=== PATIENT | female | born 1965 | race Two or more races ===

== ENCOUNTER 2017-11-04 06:32 | Emergency (ER) | payer OTHER ==
[~2017-11-04] VITALS: Ht 165.1 cm; Wt 108.9 kg
--- NOTE | 2017-11-04 07:30 | NUR ---
aaox3, came to er c/o headache. neuro intact. skin is warm and dry. resp is even and unlabored with nad noted. awaiting md for eval.
--- NOTE | 2017-11-04 07:35 | NUR ---
Dr Mendez at [facility] for eval.
[2017-11-04] MEDS ORDERED: diphenhydrAMINE HCL 50 MG/ML VIAL ONE (07:51)
[2017-11-04] MEDS ORDERED: KETOROLAC TROMETHAMINE INJ 30 MG/ML VIAL ONE (07:51)
[2017-11-04] MEDS ORDERED: METOCLOPRAMIDE HCL 10 MG/2 ML VIAL ONE (07:51)
[2017-11-04] MEDS ORDERED: diphenhydrAMINE HCL 50 MG/ML VIAL IV ONE (08:00)
[2017-11-04] MEDS ORDERED: METOCLOPRAMIDE HCL 10 MG/2 ML VIAL IV ONE (08:00)
[2017-11-04] MEDS ORDERED: KETOROLAC TROMETHAMINE INJ 30 MG/ML VIAL IV ONE (08:00)
[2017-11-04] MEDS ORDERED: IV NS 0.9% 1,000 ML BAG IV ONE (08:00)
[2017-11-04 08:09] LABS: BASOPHILS % (AUTO) 0.3 % (0.0-2.0); EOSINOPHILS % (AUTO) 0.3 % (0.0-6.0); HEMATOCRIT 44 % (33-45); HEMOGLOBIN 15.1 g/dL (11.5-14.8); LYMPHOCYTES % (AUTO) 30.3 % (20.0-44.0); MEAN CORPUSCULAR HEMOGLOBIN 31 PG (26.0-33.0); MEAN CORPUSCULAR HGB CONC 34 g/dl (31.0-36.0); MEAN CORPUSCULAR VOLUME 91 fL (82-100); MONOCYTES # (AUTO) 0.8 /CMM (0.1-1.30); MONOCYTES % (AUTO) 11.7 % (2.0-12.0); NEUTROPHILS # (AUTO) 3.8 /CMM (1.8-8.9); NEUTROPHILS % (AUTO) 57.4 % (43.0-81.0); PLATELET COUNT (AUTO) 175 /CMM (150-450); RDW COEFFICIENT OF VARIATION 13.1 (11.5-15.0); RED BLOOD CELL COUNT(AUTO) 4.84 MIL/uL (4.0-5.2); WHITE BLOOD COUNT (AUTO) 6.6 K/uL (4.3-11.0)
[2017-11-04 08:27] LABS: CALCIUM, SERUM 8.8 mg/dL (8.5-10.1); CREATININE 1.1 mg/dL (0.6-1.3); POTASSIUM 3.6 mmol/L (3.5-5.1)
--- NOTE | 2017-11-04 09:12 | NUR ---
IV removed. Catheter intact and site benign. Pressure and 4x4 applied to site. No bleeding noted.Patient discharged to home in stable condition. Written and verbal after care instructions given. Patient verbalizes understanding of instruction.
[2017-11-04 09:13] VITALS: BP 106/68
== END 2017-11-04 09:14 | disposition home or self-care (01) ==
LOC: ER 06:42
DX: R51 Headache (principal); R11.10 Vomiting, unspecified; I10 Essential (primary) hypertension
CPT/HCPCS: 36415; 80048; 85025; 96361; 96374; 96375; 99284; A4606; J1200; J1885; J2765; J7030; Z7610

== ENCOUNTER 2019-02-02 12:01 | Emergency (ER) | payer OTHER ==
[~2019-02-02] VITALS: Ht 160 cm; Wt 108.9 kg
--- NOTE | 2019-02-02 12:10 | NUR ---
PATIENT CAME IN FOR FEVER AND DIARRHEA X 3 DAYS. PATIENT ALSO C/O HEADACHE WHICH STARTED THIS MORNING. BREATHING EVEN AND UNLABORED, NO SOB NOTED. NO DISTRESS NOTED. AWAITING FOR MD POZO.
[2019-02-02] MEDS ORDERED: KETOROLAC TROMETHAMINE INJ 30 MG/ML VIAL IV ONE ×2 (12:30)
[2019-02-02] MEDS ORDERED: IV NS 0.9% 1,000 ML BAG IV ONE (12:30)
--- NOTE | 2019-02-02 12:30 | NUR ---
PIV INSERTED ON RAC G20.
[2019-02-02 12:40] LABS: BASOPHILS % (AUTO) 0.7 % (0.0-2.0); EOSINOPHILS % (AUTO) 0.7 % (0.0-6.0); HEMATOCRIT 43 % (33-45); HEMOGLOBIN 14.6 g/dL (11.5-14.8); LYMPHOCYTES # (AUTO) 2.4 /CMM (0.8-4.8); LYMPHOCYTES % (AUTO) 32.9 % (20.0-44.0); MEAN CORPUSCULAR HGB CONC 34 g/dl (31.0-36.0); MEAN CORPUSCULAR VOLUME 91 fL (82-100); MONOCYTES % (AUTO) 14.1 % (2.0-12.0); NEUTROPHILS # (AUTO) 3.7 /CMM (1.8-8.9); NEUTROPHILS % (AUTO) 51.6 % (43.0-81.0); PLATELET COUNT (AUTO) 226 /CMM (150-450); RED BLOOD CELL COUNT(AUTO) 4.69 MIL/uL (4.0-5.2); WHITE BLOOD COUNT (AUTO) 7.2 K/uL (4.3-11.0)
[2019-02-02] MEDS ORDERED: KETOROLAC TROMETHAMINE INJ 30 MG/ML VIAL ONE (12:41)
[2019-02-02 12:46] LABS: CALCIUM, SERUM 8.6 mg/dL (8.5-10.1); POTASSIUM 3.3 mmol/L (3.5-5.1)
[2019-02-02] MEDS ORDERED: METOCLOPRAMIDE HCL 10 MG/2 ML VIAL IV ONE (13:30)
[2019-02-02] MEDS ORDERED: diphenhydrAMINE HCL 50 MG/ML VIAL IV ONE (13:30)
[2019-02-02] MEDS ORDERED: METOCLOPRAMIDE HCL 10 MG/2 ML VIAL ONE (13:31)
[2019-02-02] MEDS ORDERED: diphenhydrAMINE HCL 50 MG/ML VIAL ONE (13:31)
[2019-02-02 13:46] LABS: BILIRUBIN,URINE Negative (NEGATIVE); BLOOD, URINE Negative Ery/uL (NEGATIVE); COLOR,URINE Yellow (YELLOW); KETONES,URINE Negative (NEGATIVE); LEUKOCYTE ESTERASE ,URINE Negative (NEGATIVE); NITRITE, URINE Negative (NEGATIVE); PROTEIN,URINE Negative (NEGATIVE); UGLUCOSE Negative (NEGATIVE); UROBILINOGEN,URINE 0.2 EU/dL (0.2)
[2019-02-02 13:47] LABS: APPEARANCE,URINE Hazy (CLEAR)
[2019-02-02 14:48] VITALS: BP 130/81
--- NOTE | 2019-02-02 14:49 | NUR ---
IV SITE DC R AC 20G
--- NOTE | 2019-02-02 14:49 | NUR ---
Patient discharged to home in stable condition. Written and verbal after care instructions given. Patient verbalizes understanding of instruction.
[2019-02-02 15:12] LABS: OCCULT BLOOD STOOL NEGATIVE (NEGATIVE)
== END 2019-02-02 14:50 | disposition home or self-care (01) ==
LOC: ER 12:02
DX: R19.7 Diarrhea, unspecified (principal); G44.209 Tension-type headache, unspecified, not intractable; I10 Essential (primary) hypertension
CPT/HCPCS: 36415; 80048; 81001; 82272; 84703; 85025; 87015; 87045; 87427 ×3; 89055; 96361; 96374; 96375; 99283; J1200; J1885; J2765; J7030; 81000-TC

== ENCOUNTER 2019-04-02 21:56 | Emergency (ER) | payer OTHER ==
[~2019-04-02] VITALS: Ht 167.6 cm; Wt 108.9 kg
--- NOTE | 2019-04-02 22:48 | NUR ---
PRESENTED W/ C/O LOWER BAD AND FLANK PAIN X4 D. - N/V. LMP 10 YRS AGO. - HEMATURIA, - DYSURIA. WILL CONT TO MONITOR,
[2019-04-02 23:35] LABS: APPEARANCE,URINE Clear (CLEAR); BILIRUBIN,URINE Negative (NEGATIVE); BLOOD, URINE Negative Ery/uL (NEGATIVE); COLOR,URINE Yellow (YELLOW); KETONES,URINE Negative (NEGATIVE); LEUKOCYTE ESTERASE ,URINE Negative (NEGATIVE); NITRITE, URINE Negative (NEGATIVE); PH,URINE 5.5 (5.0-8.0); PROTEIN,URINE Negative (NEGATIVE); UGLUCOSE Negative (NEGATIVE); UROBILINOGEN,URINE 0.2 EU/dL (0.2)
[2019-04-02] MEDS ORDERED: ONDANSETRON HCL/PF 4 MG/2 ML VIAL ONE (23:37)
[2019-04-02] MEDS ORDERED: KETOROLAC TROMETHAMINE INJ 30 MG/ML VIAL ONE (23:37)
[2019-04-02] MEDS ORDERED: HYDROMORPHONE 1 MG/1 ML DISP.SYRIN ONE (23:37)
[2019-04-02 23:42] LABS: BASOPHILS # (AUTO) 0.1 /CMM (0.0-0.2); BASOPHILS % (AUTO) 0.7 % (0.0-2.0); EOSINOPHILS % (AUTO) 0.7 % (0.0-6.0); HEMATOCRIT 42 % (33-45); HEMOGLOBIN 14.5 g/dL (11.5-14.8); LYMPHOCYTES # (AUTO) 3.2 /CMM (0.8-4.8); LYMPHOCYTES % (AUTO) 31.5 % (20.0-44.0); MEAN CORPUSCULAR HGB CONC 34 g/dl (31.0-36.0); MEAN CORPUSCULAR VOLUME 91 fL (82-100); MONOCYTES # (AUTO) 0.8 /CMM (0.1-1.30); MONOCYTES % (AUTO) 7.7 % (2.0-12.0); NEUTROPHILS # (AUTO) 5.9 /CMM (1.8-8.9); NEUTROPHILS % (AUTO) 59.4 % (43.0-81.0); PLATELET COUNT (AUTO) 228 /CMM (150-450); RED BLOOD CELL COUNT(AUTO) 4.63 MIL/uL (4.0-5.2)
[2019-04-02] MEDS: KETOROLAC TROMETHAMINE INJ 30 MG/ML VIAL IV ONE (23:42)
[2019-04-02] MEDS: ONDANSETRON HCL/PF - ER 4 MG/2 ML VIAL IV ONE (23:42)
[2019-04-02] MEDS: HYDROMORPHONE 1 MG/1 ML DISP.SYRIN IV ONE (23:42)
--- NOTE | 2019-04-02 23:43 | NUR ---
LAC 20G IV STARTED, BLOOD DRAWN AND SENT TO THE LAB
--- NOTE | 2019-04-03 00:15 | NUR ---
LEFT FOR CT
[2019-04-03 00:18] LABS: CALCIUM, SERUM 8.6 mg/dL (8.5-10.1); CREATININE 0.8 mg/dL (0.6-1.3); POTASSIUM 3.6 mmol/L (3.5-5.1)
[2019-04-03 00:23] LABS: ALBUMIN 3.5 g/dL (3.4-5.0); BILIRUBIN,TOTAL 0.3 mg/dL (0.2-1.0); TOTAL PROTEIN, SERUM 7.7 g/dL (6.4-8.2)
--- NOTE | 2019-04-03 00:28 | NUR ---
BACK FROM CT
[2019-04-03] MEDS ORDERED: HYDROMORPHONE 1 MG/1 ML DISP.SYRIN ONE (00:46)
[2019-04-03] MEDS: HYDROMORPHONE 1 MG/1 ML DISP.SYRIN IV ONE (00:53)
--- NOTE | 2019-04-03 03:00 | NUR ---
Patient discharged to home in stable condition. Written and verbal after care instructions given. Patient verbalizes understanding of instruction. was picked up by a cab.
[2019-04-03 03:15] VITALS: BP 124/60
[2019-04-03] MEDS ORDERED: LOSA100T31 PO (17:56)
[2019-04-03] MEDS ORDERED: LEVO125T8 PO (17:56)
[2019-04-03] MEDS ORDERED: OMEP20TA5 PO (17:56)
[2019-04-05] MEDS ORDERED: APIX5TAB PO (19:35)
[2019-04-05] MEDS ORDERED: DRON400T2 PO (19:35)
== END 2019-04-03 03:00 | disposition home or self-care (01) ==
LOC: ER 21:56
DX: M54.5 Low back pain (principal); I10 Essential (primary) hypertension; Z87.442 Personal history of urinary calculi; Z90.710 Acquired absence of both cervix and uterus
CPT/HCPCS: 36415; 74176; 80048; 80076; 81001; 83690; 84703; 85025; 96374; 96375; 96376; 99284; J1170 ×2; J1885; J2405; 81000-TC

== ENCOUNTER 2019-04-03 16:26 | Inpatient (IN) | payer OTHER ==
[~2019-04-03] VITALS: Ht 160 cm; Wt 109.3 kg
--- NOTE | 2019-04-03 16:39 | NUR ---
BIB DAUGHTER, C/O CHEST PAIN PRESSURE LIKE, SINCE LAST NIGHT. LAO-SPEAKING, AOX4, AMBULATORY. DAUGHTER AT BEDSIDE. PLACED ON MONITOR, MADE COMFORTABLE AND READY FOR EVAL.
[2019-04-03 17:24] LABS: BASOPHILS # (AUTO) 0.1 /CMM (0.0-0.2); BASOPHILS % (AUTO) 0.5 % (0.0-2.0); EOSINOPHILS % (AUTO) 0.1 % (0.0-6.0); HEMATOCRIT 43 % (33-45); HEMOGLOBIN 14.6 g/dL (11.5-14.8); MEAN CORPUSCULAR HGB CONC 34 g/dl (31.0-36.0); MEAN CORPUSCULAR VOLUME 92 fL (82-100); MONOCYTES # (AUTO) 0.6 /CMM (0.1-1.30); MONOCYTES % (AUTO) 5.7 % (2.0-12.0); NEUTROPHILS # (AUTO) 7.4 /CMM (1.8-8.9); NEUTROPHILS % (AUTO) 73.7 % (43.0-81.0); PLATELET COUNT (AUTO) 261 /CMM (150-450); RED BLOOD CELL COUNT(AUTO) 4.68 MIL/uL (4.0-5.2)
[2019-04-03] MEDS ORDERED: DILTIAZEM HCL 25 MG IV ONE ×3 (17:29→22:51)
[2019-04-03 17:30] LABS: CALCIUM, SERUM 8.9 mg/dL (8.5-10.1); CARBON DIOXIDE 28 mmol/L (21-32); CHLORIDE 102 mmol/L (98-107); CREATININE 0.8 mg/dL (0.6-1.3); GLUCOSE 113 mg/dL (74-106); POTASSIUM 4.4 mmol/L (3.5-5.1); SODIUM SERUM 136 mmol/L (136-145); UREA NITROGEN, BLOOD 15 mg/dL (7-18)
[2019-04-03] MEDS ORDERED: DILTIAZEM HCL 25 MG IV IV ONE ×2 (17:30→19:00)
[2019-04-03 17:42] LABS: B-TYPE NATRIURETIC PEPTIDE 572 PG/ML (0-125)
--- NOTE | 2019-04-03 17:52 | NUR ---
CALLED [facility] PAGED JAMILAH FOR ADMISSION.
--- NOTE | 2019-04-03 17:55 | NUR ---
CALLED NURSING SUP ASKED FOR ICU BED
[2019-04-03] MEDS ORDERED: LEVO125T8 PO (17:56)
[2019-04-03] MEDS ORDERED: OMEP20TA5 PO (17:56)
[2019-04-03] MEDS ORDERED: LOSA100T31 PO (17:56)
--- NOTE | 2019-04-03 17:58 | NUR ---
MOVE SHEET GIVEN
[2019-04-03] MEDS: DILTIAZEM HCL IV 125 MG in IV D5W 100 ML IV PRN ×3 (18:10→21:30)
[2019-04-03] MEDS ORDERED: IV NS 0.9% 1,000 ML BAG IV ONE (18:30)
--- NOTE | 2019-04-03 18:32 | NUR ---
Patient is resting comfortably in bed with eyes closed. Easily aroused. VSS
[2019-04-03] MEDS ORDERED: DIGOXIN INJ 0.5 MG/2 ML AMPUL IV ONE (19:00)
--- NOTE | 2019-04-03 19:39 | NUR ---
ICU 261
[2019-04-03] MEDS ORDERED: DIGOXIN INJ 0.5 MG/2 ML AMPUL ONE (19:45)
--- NOTE | 2019-04-03 20:01 | NUR ---
REPORT GIVEN TO CHERELLE FISHMAN FOR 261 ICU
--- NOTE | 2019-04-03 20:15 | NUR ---
COMPLIANCE EXAMINER NOTES RECEIVED PATIENT FROM ER ,WHO PRESENTED TO ER TODAY WITH CHEST PAIN SINCE LAST NIGHT.STATES SHE WAS IN ER LAST NIGHT FOR FLANK PAIN ,CT SCAN DONE BUT (-),WAS SENT HOME. WHILE IN ER HEART RATE IN THE 170'S ON ATRIAL FIBRILLATION , WAS GIVEN CARDIZEM IV BOLUS ,DIGOXIN 0.25 MG IV THEN STARTED ON CARDIZEM DRIP. PATIENT AWAKE,ALERT,NOT IN NAY DISTRESS,DENIES ANY PAIN.ORIENTED TO UNIT AND ROOM SET UP AND ICU POLICIES,COMFORT CARE DONE,NEEDS ATTENDED.
--- NOTE | 2019-04-03 20:15 | NUR ---
[facility]
[2019-04-03 20:33] VITALS: BP 134/69
[2019-04-03 21:00] VITALS: BP 146/94
[2019-04-03] MEDS ORDERED: ACETAMINOPHEN 325 MG TABLET PO PRN (21:30)
[2019-04-03] MEDS ORDERED: ONDANSETRON HCL/PF 4 MG/2 ML VIAL IVP PRN (21:30)
[2019-04-03] MEDS ORDERED: ZOLPIDEM TARTRATE 5 MG TABLET PO PRN (21:30)
[2019-04-03] MEDS ORDERED: MAGNESIUM HYDROXIDE 30 ML UDC PO PRN (21:30)
[2019-04-03] MEDS ORDERED: Z GUARD REMEDY 2 OZ OINT TP PRN (21:30)
[2019-04-03] MEDS ORDERED: MAG HYDROX/AL HYDROX/SIMETH 30 ML UDC PO PRN (21:30)
[2019-04-03] MEDS ORDERED: ASPIRIN EC 325 MG TABLET.DR PO ONE (22:00)
--- NOTE | 2019-04-03 22:00 | NUR ---
heart rate still going up into the 120's-130's, patient always on the phone,.Encouraged patient to keep calm and relax and not to be anxious since her heart rate still unstable.
[2019-04-03 22:04] VITALS: BP 144/91
[2019-04-03] MEDS: ATORVASTATIN 10 MG TABLET PO SCH (22:12)
[2019-04-03] MEDS: ENOXAPARIN SODIUM 40 MG/0.4 ML DISP.SYRIN SQ SCH (22:13)
[2019-04-03] MEDS ORDERED: DILTIAZEM HCL 50 MG IV ONE ×2 (22:45→22:46)
[2019-04-03 23:00] VITALS: BP 108/71
[2019-04-03 23:16] LABS: MAGNESIUM 1.9 mg/dL (1.8-2.4); PHOSPHORUS 2.8 mg/dL (2.5-4.9)
[2019-04-04] VITALS (39 sets, daily range): BP systolic 91–143; BP diastolic 32–88
--- NOTE | 2019-04-04 | NUR ---
Sleeps on and off, assisted to the commode , out of bed .tolerated well ,no chest pain,no shortness of breath. maintaibe on oxygen via NC 2 L/min.
[2019-04-04] MEDS: DILTIAZEM HCL IV 125 MG in IV D5W 100 ML IV PRN (00:22)
[2019-04-04] MEDS: HYDROCODONE/APAP 5/325MG 1 EACH TABLET PO PRN ×3 (03:27→23:14)
--- NOTE | 2019-04-04 03:30 | NUR ---
Complains of pleuritic chest pain(when takes a deep breath and more to the right side), PRN med for pain given.Complains she could not sleep well.
[2019-04-04 04:41] LABS: BASOPHILS % (AUTO) 0.6 % (0.0-2.0); EOSINOPHILS % (AUTO) 1.1 % (0.0-6.0); HEMATOCRIT 39 % (33-45); HEMOGLOBIN 13.5 g/dL (11.5-14.8); LYMPHOCYTES # (AUTO) 3.2 /CMM (0.8-4.8); LYMPHOCYTES % (AUTO) 41.4 % (20.0-44.0); MEAN CORPUSCULAR HGB CONC 35 g/dl (31.0-36.0); MEAN CORPUSCULAR VOLUME 92 fL (82-100); MONOCYTES # (AUTO) 0.7 /CMM (0.1-1.30); MONOCYTES % (AUTO) 8.9 % (2.0-12.0); NEUTROPHILS # (AUTO) 3.8 /CMM (1.8-8.9); PLATELET COUNT (AUTO) 234 /CMM (150-450); RED BLOOD CELL COUNT(AUTO) 4.24 MIL/uL (4.0-5.2); WHITE BLOOD COUNT (AUTO) 7.8 K/uL (4.3-11.0)
[2019-04-04 04:53] LABS: ALBUMIN 3.2 g/dL (3.4-5.0); BILIRUBIN,TOTAL 0.4 mg/dL (0.2-1.0); CALCIUM, SERUM 8.4 mg/dL (8.5-10.1); CREATININE 0.8 mg/dL (0.6-1.3); MAGNESIUM 1.9 mg/dL (1.8-2.4); PHOSPHORUS 3.1 mg/dL (2.5-4.9); POTASSIUM 3.9 mmol/L (3.5-5.1); TOTAL PROTEIN, SERUM 7.3 g/dL (6.4-8.2)
[2019-04-04 05:07] LABS: THYROID STIMULATING HORMONE 3.792 uIU/mL (0.358-3.74)
--- NOTE | 2019-04-04 07:00 | NUR ---
Remains stable,denies any chest pain,back pain feels better as per patient. Still on Cardizem drip at 10 mg/hr, heart rate controlled.Patient for Echo and Carotid Duplex. Report given to Lukas VILLARREAL.
[2019-04-04] MEDS ORDERED: AMIODARONE 900 MG in IV D5W 500 ML IV PRN (08:00)
[2019-04-04] MEDS ORDERED: AMIODARONE 150 MG in IV D5W 100 ML IV ONE (08:00)
--- NOTE | 2019-04-04 08:00 | NUR ---
RN NOTE: PATIENT RECEIVED ALERT AWAKE ORIENTED X 4. ON 3 LPM O2 VIA NC, NO BREATHING DISTRESS NOTED. DENIES CHEST PAIN & DISCOMFORT. CONTINUE WITH CARDIAZEM DRIP ORDERED BY . REMAINS A-FIB ON TELE MONITOR 70S-110S. SAFETY MEASURES OBSERVED. ENCOURAGE TO USE CALL LIGHT FOR ASSISTANCE. CONTINUE TO MONITOR. CALL LIGHT WITH IN REACH.
[2019-04-04] MEDS: LOSARTAN POTASSIUM 50 MG TABLET PO SCH (08:35)
[2019-04-04] MEDS: METOPROLOL TARTRATE 25 MG TABLET PO SCH ×2 (08:36→21:14)
[2019-04-04] MEDS: LEVOTHYROXINE SODIUM 125 MCG TABLET PO SCH (08:36)
[2019-04-04] MEDS: PANTOPRAZOLE 40 MG TABLET.DR PO SCH (08:36)
[2019-04-04] MEDS ORDERED: ASPIRIN EC 81 MG TABLET.DR PO SCH (09:00)
[2019-04-04] MEDS ORDERED: Medication Not On Formulary EA (Losartan Potassium 100 MG) PO SCH (09:00)
[2019-04-04] MEDS ORDERED: AMIODARONE 900 MG in IV D5W 482 ML IV PRN (09:30)
[2019-04-04] MEDS: IPRATROPIUM NEB FS 0.5 MG/2.5 ML AMPUL.NEB NEB SCH ×4 (15:15→23:29)
--- NOTE | 2019-04-04 17:40 | NUR ---
RN NOTE: PATIENT REMAINS ALERT AWAKE ORIENTED X 4. ON ROOM AIR, NO BREATHING DISTRESS NOTED. DENIES CHEST PAIN & DISCOMFORT. C/O BACK PAIN, NORCO GIVEN, EFFECTIVE. ON TELE MONITOR, A-FIB 90S-110S. AMIODARONE BOLUS & AMIODARONE DRIP AT 33.33ML/HR FOR 6 HOURS GIVEN ORDERED. CONTINUE WITH AMIODARONE DRIP AT 16.6ML/HR, 0.5MG/HR. SAFETY MEASURES OBSERVED. ENCOURAGE TO USE CALL LIGHT FOR ASSISTANCE. SAFETY MEASURES OBSERVED. PT ABLE TO WALK, INDEPENDENT. CONTINUE WITH PLAN OF CARE.
--- NOTE | 2019-04-04 19:45 | NUR ---
RECEIVED PATIENT IN BED, PATIENT IS A&O X4, [place] SPEAKING ONLY. VSS,AFEBRILE, NO DISTRESS NOTED, DENIES PAIN . PATIENT ON AMIODARONE DRIP 0.5 MG/HR, PATIENT IS NSR ON THE MONITORS. SAFETY MEASURES IMPLEMENTED, CALL LIGHT WITHIN REACH INSTRUCTED TO CALL FOR ASSISTANCE. CONTINUE TO MONITOR
[2019-04-04] MEDS: ATORVASTATIN 10 MG TABLET PO SCH (21:14)
[2019-04-04] MEDS: ENOXAPARIN SODIUM 40 MG/0.4 ML DISP.SYRIN SQ SCH (21:15)
[2019-04-05] VITALS (34 sets, daily range): BP systolic 102–146; BP diastolic 31–92
[2019-04-05] MEDS: IPRATROPIUM NEB FS 0.5 MG/2.5 ML AMPUL.NEB NEB SCH ×5 (03:18→19:20)
[2019-04-05 04:57] LABS: BASOPHILS # (AUTO) 0.1 /CMM (0.0-0.2); BASOPHILS % (AUTO) 0.6 % (0.0-2.0); EOSINOPHILS % (AUTO) 0.9 % (0.0-6.0); HEMATOCRIT 40 % (33-45); HEMOGLOBIN 13.6 g/dL (11.5-14.8); LYMPHOCYTES # (AUTO) 3.5 /CMM (0.8-4.8); LYMPHOCYTES % (AUTO) 35.8 % (20.0-44.0); MEAN CORPUSCULAR HGB CONC 35 g/dl (31.0-36.0); MEAN CORPUSCULAR VOLUME 91 fL (82-100); MONOCYTES # (AUTO) 0.9 /CMM (0.1-1.30); MONOCYTES % (AUTO) 8.8 % (2.0-12.0); NEUTROPHILS # (AUTO) 5.2 /CMM (1.8-8.9); NEUTROPHILS % (AUTO) 53.9 % (43.0-81.0); PLATELET COUNT (AUTO) 225 /CMM (150-450); RED BLOOD CELL COUNT(AUTO) 4.33 MIL/uL (4.0-5.2); WHITE BLOOD COUNT (AUTO) 9.7 K/uL (4.3-11.0)
[2019-04-05 05:27] LABS: ALBUMIN 3.2 g/dL (3.4-5.0); BILIRUBIN,TOTAL 0.9 mg/dL (0.2-1.0); CALCIUM, SERUM 8.6 mg/dL (8.5-10.1); CREATININE 0.8 mg/dL (0.6-1.3); MAGNESIUM 1.9 mg/dL (1.8-2.4); PHOSPHORUS 3.3 mg/dL (2.5-4.9); POTASSIUM 3.7 mmol/L (3.5-5.1); TOTAL PROTEIN, SERUM 7.4 g/dL (6.4-8.2)
[2019-04-05] MEDS ORDERED: RIVAROXABAN 10 MG TABLET PO SCH (08:00)
[2019-04-05] MEDS: PANTOPRAZOLE 40 MG TABLET.DR PO SCH (08:38)
[2019-04-05] MEDS: LEVOTHYROXINE SODIUM 125 MCG TABLET PO SCH (08:38)
[2019-04-05] MEDS: LOSARTAN POTASSIUM 50 MG TABLET PO SCH (08:39)
--- NOTE | 2019-04-05 09:11 | NUR ---
received pt from night supervisor a/o x4, SR, off on amio drip since 0800, lungs partially congested, no edema, tolerates diet, bedside commode, v/s stable, no pain.
[2019-04-05] MEDS: APIXABAN 5 MG TABLET PO SCH ×2 (09:30→17:28)
[2019-04-05] MEDS: DRONEDARONE HYDROCHLORIDE 400 MG TABLET PO SCH ×2 (10:30→17:27)
--- NOTE | 2019-04-05 16:27 | NUR ---
pt is resting in the bed, SR, RA, v/s stable, no pain.
--- NOTE | 2019-04-05 17:57 | NUR ---
pt transferred to med/surg, v/s stable, no pain.
--- NOTE | 2019-04-05 18:00 | NUR ---
RECEIVED PT TRANSFERRED FROM ICU.PT IS ALERT AND [place]ABON[place] SPEAKING.DENIES ANY PAIN OR DISTRESS.NO SOB IN ROOM AIR.AMBULATES AD JADA.WITH BRP.SKIN INTACT.SEEN BY OMKAR YOUNG WHO STATED THAT PT WILL BE DISCHARGED THIS EVENING.CHECKED PT'S BELONGINGS.PT STATED THAT HER DAUGHTER WILL PICK HER UP AFTER WORK AT 8PM.ROOM ORIENTATION AND CALL LIGHT USE GIVEN. CALL LIGHT PLACED WITHIN REACH.
--- NOTE | 2019-04-05 19:30 | NUR ---
MS/RN OPENING NOTES PT RECEIVED AWAKE, SITTING UP IN BED. ON ROOM AIR, BREATHING EVEN AND UNLABORED. DENIES SOB AND PAIN AT THIS TIME. IV TO RFA PATENT AND INTACT. IN NO ACUTE DISTRESS. PLANNING FOR DC HOME TONIGHT. AWAITING FOR JAMILAH, INTERMEDIATE CARD TENDER DISCHARGE ORDER. PT IS AWARE. DAUGHTER TO COME RESPIRATORY THERAPIST ASSISTANT PT AFTER 1999. BED IN LOW/LOCKED POSITION WITH CALL LIGHT IN REACH. BILAT. UPPER SIDE RAILS IN PLACE. WILL CONTINUE TO MONITOR
[2019-04-05] MEDS ORDERED: DRON400T2 PO (19:35)
[2019-04-05] MEDS ORDERED: APIX5TAB PO (19:35)
--- NOTE | 2019-04-05 21:21 | NUR ---
PT DISCHARGE PT LEFT UNIT WITH DC PAPERWORK, ACCOMPANIED BY TWO FAMILY MEMBERS AND CDL SERVICE TECHNICIAN. LEFT IN STABLE CONDITION. IV AND WRIST BAND REMOVED. DISCHARGE PAPERWORK SIGNED AND COPIES MADE/PLACED IN THE CHART. DISCHARGE INSTRUCTIONS PROVIDED AND PRESCRIPTION REVIEWED WITH PT AND DAUGHTER. A COPY WAS PLACED IN THE CHART. BELONGINGS SENT WITH PT. PT AND DAUGHTER VERBALIZED UNDERSTANDING OF PLAN POST DISCHARGE.
== END 2019-04-05 21:20 | disposition home or self-care (01) | DRG 201 ==
LOC: ER 16:26 → ICU 19:27 → MEDSG2 04-05 17:48
PROVIDERS: ADMIT Hospitalist; ATTEND Hospitalist
DX: I48.91 Unspecified atrial fibrillation (principal); I21.A1 Myocardial infarction type 2; E66.01 Morbid (severe) obesity due to excess calories; I10 Essential (primary) hypertension; K21.9 Gastro-esophageal reflux disease without esophagitis; J98.11 Atelectasis; Z68.41 Body mass index [BMI] 40.0-44.9, adult; E03.9 Hypothyroidism, unspecified; Z79.899 Other long term (current) drug therapy; Z90.710 Acquired absence of both cervix and uterus; Z98.890 Other specified postprocedural states; G47.33 Obstructive sleep apnea (adult) (pediatric)
CPT/HCPCS: 36415; 71045-TC; 80048-TC; 80053-TC; 80061-TC; 83735-TC; 83880; 84100-TC; 84439-TC; 84443-TC; 84484-TC; 85025-TC; 85730-TC; 87081-TC; 93307-TC; 93880-TC; 97116-TC; 97530-TC; G0378; J0282; J1160; J1650; J3490; J7030; J7050; J7060